=== PATIENT | male | born 1955 | race African-American/Black ===

== ENCOUNTER 2016-05-18 11:52 | Emergency (ER) | payer MEDICAID ==
[~2016-05-18] VITALS: Ht 182.9 cm; Wt 95.3 kg
[~2016-05-18 11:52] MED LIST: CYCLOBENZAPRINE10 MG ORAL; IBUPROFEN600 MG ORAL
[2016-05-18 11:53] VITALS: BP 136/76
[2016-05-18] MEDS ORDERED: TINACTIN30 GM TP (12:10)
[2016-05-18] MEDS ORDERED: BACTRIM DS TAB1 EAC1 ORAL (12:10)
--- NOTE | 2016-05-19 07:14 | Emergency Room Report ---
History of Present Illness General Chief Complaint: Lower Extremity Injury Source: Patient Present Illness HPI Patient had previously checked in however was not found in the waiting room Please note that the patient was in the cafeteria And was initially taken off the patient lists has left without being seen Patient has now returned complains that he has had problems to the nail of his feet bilaterally Skin problems Ongoing for almost the past year Denies any fevers or chills denies any chest pain or shortness of breath denies any other fall or trauma Allergies: Coded Allergies: No Known Allergies (Unverified , 10/26/13) Patient History Past Medical History: see triage record Pertinent Family History: none Reviewed Nursing Documentation: PMH: Agreed, PSxH: Agreed Nursing Documentation-PMH Past Medical History: No History, Except For History Of Psychiatric Problem: Yes - drug addiction Review of Systems All Other Systems: negative except mentioned in HPI Physical Exam Vital Signs Date Time Temp Pulse Resp B/P Pulse Ox O2 Delivery O2 Flow Rate FiO2 05/18/16 11:53 98.2 88 18 136/76 98 Room Air Sp02 EP Interpretation: reviewed, normal General Appearance: well appearing, no apparent distress Head: normocephalic, atraumatic Eyes: bilateral eye EOMI, bilateral eye PERRL ENT: hearing grossly normal, normal pharynx, TMs + canals normal, uvula midline Neck: supple Gastrointestinal: soft Musculoskeletal: normal inspection Neurologic: alert, oriented x3 Skin: other - Patient has fungal infection of bilateral feet including the toenails, there is mild erythema to the dorsal aspect of the right foot concerning for possible early cellulitis Lymphatic: no adenopathy Medical Decision Making Diagnostic Impression: Primary Impression: fungal infection ER Course Patient was provided specialty consultation for podiatry if initially placed on ointment for the fungal infection and antibiotic for possible cellulitis This infection however will likely require oral antifungal medication which is deferred to specialty followup Last Vital Signs Date Time Temp Pulse Resp B/P Pulse Ox O2 Delivery O2 Flow Rate FiO2 05/18/16 12:16 98.2 18 136/76 98 Room Air 05/18/16 11:53 88 Status: unchanged Disposition: HOME, SELF-CARE Condition: Stable Scripts Trimethoprim/Sulfamethoxazole 160/800* (BACTRIM DS TABLET*) 1 Each Tablet 1 TAB ORAL Q12H, #14 TAB 0 Refills Prov: OMARI LEA D.O. 05/18/16 Tolnaftate (TINACTIN) 30 Gm Cream..g. 30 GM TP BID for 10 Days, GM Prov: OMARI LEA D.O. 05/18/16 Referrals: NON PHYSICIAN (PCP) KAYLENE EDWARDS Patient Instructions: Athlete's Foot, [id number] Additional Instructions: Patient is provided with the discharge instructions notified to follow up with primary doctor in the next 2-3 days otherwise return to the er with any worsening symptoms. Please note that this report is being documented using [employer] technology. This can lead to erroneous entry secondary to incorrect interpretation by the dictating instrument. OMARI LEA D.O. May 19, 2016 07:14
== END 2016-05-18 12:30 | disposition home or self-care (01) ==
LOC: EMR 12:23
DX: B35.3 Tinea pedis (principal); B35.1 Tinea unguium
CPT/HCPCS: 99284

== ENCOUNTER 2017-02-16 16:56 | Emergency (ER) | payer MEDICAID ==
[~2017-02-16 16:56] MED LIST changes: +BACTRIM DS TAB1 EAC1 ORAL; +TINACTIN30 GM TP
--- NOTE | 2017-02-18 07:49 | Emergency Room Report ---
History of Present Illness General Chief Complaint: To Be Triaged Present Illness Allergies: Coded Allergies: No Known Allergies (Unverified , 10/26/13) Medical Decision Making Diagnostic Impression: Primary Impression: LWBS Disposition: LEFT W/OUT BEING SEEN Condition: Unknown Referrals: NON PHYSICIAN (PCP) OMARI LEA D.O. Feb 18, 2017 07:49
== END 2017-02-16 18:22 | disposition left against medical advice (07) ==
LOC: EMR 17:55
DX: Z53.21 Procedure and treatment not carried out due to patient leaving prior to being seen by health care provider (principal)

== ENCOUNTER 2017-04-11 23:43 | Emergency (ER) | payer MEDICAID ==
[~2017-04-11] VITALS: Ht 182.9 cm; Wt 90.7 kg
[2017-04-12] MEDS ORDERED: CLINDAMYCIN HC300 MG ORAL (00:13)
[2017-04-12 00:28] VITALS: BP 146/79
--- NOTE | 2017-04-12 00:36 | Emergency Room Report ---
History of Present Illness General Chief Complaint: Lower Extremity Injury Source: Patient Present Illness HPI 7-year-old male, no significant past medical history, presenting with left foot redness for 2 days. Patient states he just noticed it, it hurts. Worse when he walks. Denies any diabetes. No fever no chills. Has been eating and drinking normally. Patient was noted to be eating a whole pizza in the ER Allergies: Coded Allergies: PENICILLINS (Verified Allergy, Unknown, 04/11/17) Patient History Past Medical History: see triage record Past Surgical History: none Pertinent Family History: none Reviewed Nursing Documentation: PMH: Agreed, PSxH: Agreed Review of Systems All Other Systems: negative except mentioned in HPI Physical Exam Vital Signs Date Time Temp Pulse Resp B/P (MAP) Pulse Ox O2 Delivery O2 Flow Rate FiO2 04/11/17 23:46 98.8 102 20 146/79 98 Room Air 98.8 Sp02 EP Interpretation: reviewed, normal General Appearance: normal inspection, well appearing, no apparent distress, alert, GCS 15, non-toxic Head: normocephalic, atraumatic Eyes: bilateral eye normal inspection, bilateral eye PERRL, bilateral eye EOMI ENT: normal ENT inspection, normal pharynx, normal voice, moist mucus membranes Neck: normal inspection, full range of motion, supple Respiratory: normal inspection, lungs clear, normal breath sounds, no respiratory distress, no retraction, no wheezing, speaking full sentences, chest symmetrical Cardiovascular #1: normal inspection, regular rate, rhythm, no edema, normal capillary refill Cardiovascular #2: 2+ radial (R), 2+ radial (L) Gastrointestinal: normal inspection, non tender, soft, non-distended, no guarding Genitourinary: no CVA tenderness Musculoskeletal: back normal, normal range of motion, other - Left foot with 1 + pitting edema, erythema noted in the medial aspect about 4 x 4 centimeters. No ulceration. No tenderness proportion. No crepitus. Full range of motion of left foot Neurologic: normal inspection, alert, oriented x3, responsive, motor strength/ tone normal, sensory intact, normal gait, speech normal Psychiatric: normal inspection, judgement/insight normal, memory normal Skin: warm/dry, well hydrated, normal turgor Medical Decision Making Diagnostic Impression: Primary Impression: Cellulitis of foot ER Course 61-year-old male with redness/swelling to left foot for 2 days DDX: Cellulitis / benign dermatitis No crepitus / pain out of proportion / rapid spreading for concern for nec fasc Plan: Antibiotics anticipate discharge as patient appears well ER course: Remains nontoxic appearing. There has been no rapid spread of redness/swelling. Disposition: Patient is to be discharged to home on PO antibiotics. Strict precautions discussed with patients on when to return to the ED including fevers, chills, rapid spread of rash, persistent rash, extreme pain to extremity, which may indicate severe illness. Patient verbalizes understanding. Patient is instructed to follow up with primary care doctor OR come back to the ED in 48 hours for wound check. Patient agrees with plan. Please note that this Emergency Department Report was dictated using [employer] mobile driver technology software, occasionally this can lead to erroneous entry secondary to interpretation by the dictation equipment. Xray: Left foot 3 view Indication: Pain EP Interpretation: Yes Interpretation: No dislocation, no soft tissue swelling, no fractures Impression: No acute disease Electronically signed by Renan Sow MD Last Vital Signs Date Time Temp Pulse Resp B/P (MAP) Pulse Ox O2 Delivery O2 Flow Rate FiO2 04/12/17 00:28 98.8 20 146/79 98 Room Air 98.8 04/11/17 23:46 102 Disposition: HOME, SELF-CARE Condition: Stable Scripts Clindamycin Hcl (CLINDAMYCIN HCL) 300 Mg Capsule 300 MG ORAL THREE TIMES A DAY, #21 CAP 0 Refills Prov: Renan Sow M.D. 04/12/17 Patient Instructions: Cellulitis, [id number] Additional Instructions: Please follow up with your primary care doctor within 3 days for recheck Please take your prescription medication as directed. Please come back to the emergency room if you are having severe/worsening pain, rapid spread of rash, intractable fever chills, inability to take your medication Renan Sow M.D. Apr 12, 2017 00:35
--- NOTE | 2017-04-12 10:20 | Diagnostic Imaging Report ---
Indication: Reason For Exam: PAIN Technique: 3 views left foot Comparison: none Findings: There is hallux valgus and metatarsus adductus. No acute fractures. No dislocations. The joint spaces are preserved. Fused fourth and fifth distal interphalangeal joints-normal anatomic variant Impression: Negative
== END 2017-04-12 00:25 | disposition home or self-care (01) ==
LOC: EMR 23:56
DX: L03.116 Cellulitis of left lower limb (principal); Z88.0 Allergy status to penicillin
CPT/HCPCS: 99283

== ENCOUNTER 2017-11-12 17:44 | Emergency (ER) | payer MEDICAID ==
[~2017-11-12] VITALS: Ht 182.9 cm; Wt 99.8 kg
[~2017-11-12 17:44] MED LIST changes: +CLINDAMYCIN HC300 MG ORAL
[2017-11-12 18:19] VITALS: BP 154/84
--- NOTE | 2017-11-12 18:58 | Emergency Room Report ---
History of Present Illness General Chief Complaint: Male Urogenital Problems Source: Patient, Medical Record Present Illness HPI 62-year-old male presents emergency department complaining of suspicion for right testicular hernia. He denies pain at this time he reports feeling fullness and a "bulge" on several occasions. Patient states he is not currently having symptoms. Patient denies fevers, chills, swollen tender lymph nodes, lesions or rashes in the groin or penile discharge. Patient denies dysuria, testicular pain, tenderness or swelling. He denies abdominal pain or tenderness. Denies constipation. Allergies: Coded Allergies: PENICILLINS (Verified Allergy, Unknown, 11/12/17) Patient History Past Medical History: see triage record Past Surgical History: none Pertinent Family History: none Reviewed Nursing Documentation: PMH: Agreed; PSxH: Agreed Nursing Documentation-PMH Past Medical History: No History, Except For Review of Systems All Other Systems: negative except mentioned in HPI Physical Exam Vital Signs Date Time Temp Pulse Resp B/P (MAP) Pulse Ox O2 Delivery O2 Flow Rate FiO2 11/12/17 17:49 98.5 91 15 154/84 97 98.4 Sp02 EP Interpretation: reviewed, normal General Appearance: no apparent distress, alert, GCS 15, non-toxic Head: normocephalic, atraumatic ENT: hearing grossly normal, normal voice Neck: full range of motion Respiratory: lungs clear, normal breath sounds, speaking full sentences Cardiovascular #1: regular rate, rhythm Gastrointestinal: normal bowel sounds, non tender, soft, non-distended, no guarding, no hernia Rectal: deferred Genitourinary: normal inspection, penis normal, scrotum normal, other - I do not palpate indirect or direct hernia in the inguinal canal. Cremasteric reflexes are intact no testicular swelling, erythema. Phren sign is not applicable/negative. no LAD Musculoskeletal: back normal, gait/station normal, normal range of motion, non- tender Neurologic: alert, oriented x3, responsive, motor strength/tone normal, sensory intact, normal gait, speech normal, grossly normal Psychiatric: judgement/insight normal Skin: normal color, no rash, warm/dry, well hydrated Lymphatic: no adenopathy Medical Decision Making PA Attestation Dr. Caba is my supervising Physician whom patient management has been discussed with. Diagnostic Impression: Primary Impression: Inguinal hernia of right side without obstruction or gangrene ER Course 62-year-old male presents emergency department complaining of suspicion for right testicular hernia. He denies pain at this time he reports feeling fullness and a "bulge" on several occasions. Patient states he is not currently having symptoms. Patient denies fevers, chills, swollen tender lymph nodes, lesions or rashes in the groin or penile discharge. Patient denies dysuria, testicular pain, tenderness or swelling. He denies abdominal pain or tenderness. Denies constipation. Ddx considered but are not limited to hernia, strangulated or incarcerated hernia, gangrene, testicular torsion, epididymitis, STI just to name a few. Vital signs: are WNL, pt. is afebrile H&PE are most consistent with Normal medical screening exam, JEET Amezcua, was abrasive worker for physical exam. I do not palpate obvious or significant indirect or direct hernia in the inguinal canal. Cremasteric reflexes are intact no testicular swelling, erythema. Phren sign is not applicable/negative. no LAD ORDERS: none required at this time, the diagnosis is clinical- although not currently present, pt. clinically describes symptoms of a hernia, therefore not entirely excluded. ED INTERVENTIONS: None required at this time. -I do not identify an emergent condition at this time. With current presentation , pt. is stable for close outpatient follow up and conservative treatment. D/ w pt. to return promptly to ED with worsening or new symptoms.- Pt. verbalizes understanding and agreement with proposed treatment plan.proposed treatment plan. DISCHARGE: At this time pt. is stable for d/c to home. Will provide printed patient care instructions, and any necessary prescriptions. Care plan and follow up instructions have been discussed with the patient prior to discharge. Last Vital Signs Date Time Temp Pulse Resp B/P (MAP) Pulse Ox O2 Delivery O2 Flow Rate FiO2 11/12/17 18:19 98.4 75 15 154/84 97 98.4 Disposition: HOME, SELF-CARE Condition: Stable Patient Instructions: Hernia, Adult, [id number] Additional Instructions: Take medications as directed. Follow up with a Primary Care Provider in 3-5 days, even if your symptoms have resolved. --Please review list of primary care clinics, if you do not already have a primary care provider Return sooner to ED if new symptoms occur, or current symptoms become worse. - Please note that this Emergency Department Report was dictated using [employer] director technology software, occasionally this can lead to erroneous entry secondary to interpretation by the dictation equipment. Migdalia Mckeon Nov 12, 2017 18:58
[2017-11-12 19:18] VITALS: BP 154/84
== END 2017-11-12 19:03 | disposition home or self-care (01) ==
LOC: EMR 18:26
DX: K40.90 Unilateral inguinal hernia, without obstruction or gangrene, not specified as recurrent (principal); Z88.0 Allergy status to penicillin
CPT/HCPCS: 99282

== ENCOUNTER 2020-03-26 13:44 | Emergency (ER) | payer SELFPAY ==
[~2020-03-26] VITALS: Ht 182.9 cm; Wt 99.8 kg
[~2020-03-26 13:44] MED LIST changes: +IBUPROFEN800 MG ORAL; +LIDODERM700 M1 TOPIC; +TRAMADOL HCL50 MG ORAL
[2020-03-26 13:54] VITALS: BP 150/86
--- NOTE | 2020-03-26 13:59 | NUR ---
ED Nurse Note: Patient from home and walked in due to bilateral toes ingrown x 1 year. States that his feet are getting swollen. AAO x4, ambulates with steady gait. Denies any pain upon ED arrival.
--- NOTE | 2020-03-26 14:51 | Emergency Room Report ---
History of Present Illness General Chief Complaint: Skin Rash/Abscess Present Illness HPI 64 YO male presents to the ED c/o excessively long toe nails bilaterally that are cutting into his skin. Pt. denies erythema, warmth, d/c, fevers or chills. Pt. denies Hx of DM or circulatory issues. He denies having a pulmonary function technologist or PCP. Pt. denies trauma or fall. Denies paresthesias. Denies pain at this time. No other aggravating or relieving factors at this time. Allergies: Coded Allergies: PENICILLINS (Verified Allergy, Unknown, 11/12/17) COVID-19 Screening Contact w/high risk pt: No Experienced COVID-19 symptoms?: No COVID-19 Testing performed CALL TAKER: No Patient History Past Medical History: see triage record Past Surgical History: none Pertinent Family History: none Immunizations: UTD Reviewed Nursing Documentation: PMH: Agreed; PSxH: Agreed Review of Systems All Other Systems: negative except mentioned in HPI Physical Exam Vital Signs Date Time Temp Pulse Resp B/P (MAP) Pulse Ox O2 Delivery O2 Flow Rate FiO2 03/26/20 13:54 97.9 73 16 150/86 96 Room Air Sp02 EP Interpretation: reviewed, normal General Appearance: no apparent distress, alert, GCS 15, non-toxic Head: normocephalic, atraumatic Eyes: bilateral eye normal inspection, bilateral eye PERRL ENT: hearing grossly normal, normal voice Neck: full range of motion Respiratory: lungs clear, normal breath sounds, speaking full sentences Cardiovascular #1: regular rate, rhythm, no edema, normal capillary refill Cardiovascular #2: 2+ dorsalis pedis (R), 2+ dorsalis pedis (L) Musculoskeletal: normal range of motion, gait/station normal, non-tender Neurologic: alert, motor strength/tone normal, oriented x3, sensory intact, responsive, speech normal Psychiatric: judgement/insight normal Skin: no rash, normal color, other - excessively long toe nails bilaterally with with onychomycosis noted as well. No evidence of paronychia, eponychia or infected ingrown nail. Nails are hyperkeratotic and yellow in color. good cap refill. No open wounds. Medical Decision Making PA Attestation Dr. Hughes is my supervising Physician whom patient management has been discussed with. Diagnostic Impression: Primary Impression: Mycotic toenails Additional Impression: Overgrown toenails ER Course 64 YO male presents to the ED c/o excessively long toe nails bilaterally that are cutting into his skin. Pt. denies erythema, warmth, d/c, fevers or chills. Pt. denies Hx of DM or circulatory issues. He denies having a pulmonary function technologist or PCP. Pt. denies trauma or fall. Denies paresthesias. Denies pain at this time. No other aggravating or relieving factors at this time. Ddx considered but are not limited to cellulitis, Necrotizing fasciitis, allergic reaction, burn, dermatitis, fracture, d/L, gout, paronychia, eponychia, ingrown toe nails just to name a few. Vital signs: are WNL, pt. is afebrile H&PE are most consistent with excessively long toe nails bilaterally with with onychomycosis noted as well. No evidence of paronychia, eponychia or infected ingrown nail. Nails are hyperkeratotic and yellow in color. good cap refill. No open wounds. ORDERS: none required at this time, the diagnosis is clinical ED INTERVENTIONS: -Warm Water soak, ----- PT. had to leave and could not wait for interventions to be performed. - Nails to be trimmed by RN. ---- PT. had to leave and could not wait for interventions to be performed. -I do not identify an emergent condition at this time. With current presentation, pt. is stable for close outpatient follow up and conservative treatment. D/w pt. to return promptly to ED with worsening or new symptoms.- Pt. verbalizes' understanding and agreement with proposed treatment plan. DISCHARGE: At this time pt. is stable for d/c to home. Will provide printed patient care instructions, and any necessary prescriptions. Care plan and follow up instructions have been discussed with the patient prior to discharge. Last Vital Signs Date Time Temp Pulse Resp B/P (MAP) Pulse Ox O2 Delivery O2 Flow Rate FiO2 03/26/20 13:54 97.9 73 16 150/86 (107) 96 Room Air Status: improved Disposition: HOME, SELF-CARE Condition: Stable Referrals: NOT CHOSEN IPA/,REFERRING (PCP) [facility] Patient Instructions: Personal Hygiene Additional Instructions: Take medications as directed. Follow up with a Primary Care Provider in 3-5 days FOR PODIATRY REFERRAL even if your symptoms have resolved. --Please review list of primary care clinics, if you do not already have a primary care provider Return sooner to ED if new symptoms occur, or current symptoms become worse. - Please note that this Emergency Department Report was dictated using [employer] pickup/receiving associate technology software, occasionally this can lead to erroneous entry secondary to interpretation by the dictation equipment. Migdalia Mckeon Mar 26, 2020 14:51
[2020-03-26 15:02] VITALS: BP 150/86
--- NOTE | 2020-03-26 15:03 | NUR ---
Patient got upset for waiting too long and walked out of the er
== END 2020-03-26 15:05 | disposition home or self-care (01) ==
LOC: EMR 14:31
DX: B35.1 Tinea unguium (principal); L60.8 Other nail disorders; Z88.0 Allergy status to penicillin
CPT/HCPCS: 99281

== ENCOUNTER 2020-04-11 11:21 | Emergency (ER) | payer SELFPAY ==
[~2020-04-11] VITALS: Ht 182.9 cm; Wt 99.8 kg
--- NOTE | 2020-04-11 12:21 | NUR ---
pt resting with eyes closed in no noted distress. woke pt, he said he is here to get his feet "sterilized".
[2020-04-11 12:22] VITALS: BP 168/91
[2020-04-11] MEDS ORDERED: TINACTIN30 GM TP (12:28)
--- NOTE | 2020-04-11 12:29 | NUR ---
gave pt a basin to wash his feet in with soap and water, towel to dry
--- NOTE | 2020-04-11 12:31 | NUR ---
gave pt basin to wash up in
--- NOTE | 2020-04-11 12:31 | Emergency Room Report ---
History of Present Illness General Chief Complaint: General Complaint Source: Patient Present Illness HPI Disclaimer: Please note that this report is being documented using [employer] technology. This can lead to erroneous entry secondary to incorrect interpretation by the dictating instrument. HPI: 64-year-old male presents requesting medication refill and clipping of his toenails. Patient has longstanding mycotic infection of his toenails and is requesting refill of medication as prescribed last time. Appears this was Tinactin spray. States he has not not been able to see a food bagging machine operator to trim his toenails. Denies skin breakdown, ulcerations, bleeding, purulent drainage. No injury reported. No other symptoms. PMH: Reviewed PSH: Reviewed Allergies: Penicillin Social Hx: Reviewed Allergies: Coded Allergies: PENICILLINS (Verified Allergy, Unknown, 11/12/17) COVID-19 Screening Contact w/high risk pt: No Experienced COVID-19 symptoms?: No COVID-19 Testing performed DISTRICT MEDICAL EXAMINER: No Nursing Documentation-PMH Past Medical History: No History, Except For Hx Diabetes: Yes Review of Systems All Other Systems: negative except mentioned in HPI Physical Exam Vital Signs Date Time Temp Pulse Resp B/P (MAP) Pulse Ox O2 Delivery O2 Flow Rate FiO2 04/11/20 11:39 98.6 90 18 168/91 (116) 96 Room Air General: Awake and alert, no acute distress HEENT: NC/AT. EOMI. Resp: Normal work of breathing Skin: Intact. No abrasions, laceration or rash over the exposed skin. No edema, no cellulitis, no abscess, no purulent drainage. MSK: Normal tone and bulk. Moving all extremities. No obvious deformity. Overgrown toenails thickened appearance consistent with fungal toenail infection Neuro: Awake and alert. Mentating appropriately Medical Decision Making Diagnostic Impression: Primary Impression: Overgrown toenails Additional Impression: Mycotic toenails ER Course 64-year-old male presents for medication refill and toenail trimming. History of mycotic toenails and has not yet followed up with podiatry. Provided with soap and water to clean his feet. No evidence of cellulitis. Will refill his medication and refer again to outpatient podiatry. No indication for emergent labs or imaging at this time. Last Vital Signs Date Time Temp Pulse Resp B/P (MAP) Pulse Ox O2 Delivery O2 Flow Rate FiO2 2/21/21 12:22 98.6 18 168/91 96 Room Air 04/11/20 12:22 90 Disposition: HOME, SELF-CARE Condition: Stable Scripts Tolnaftate (TINACTIN) 30 Gm Cream..g. 30 GM TP BID for 10 Days, GM Prov: Gio Dey MD 04/11/20 Referrals: NON PHYSICIAN (PCP) [facility] Patient Instructions: Athlete's Foot Additional Instructions: Follow-up with clinic for referral to podiatry for toenail maintenance. Take the medication as prescribed. Return to the emergency department new or worsening symptoms. Gio Dey MD Apr 11, 2020 12:31
--- NOTE | 2020-04-11 12:50 | NUR ---
ER DISCHARGE NOTE: Patient is cleared to be discharged per ERMD, pt is aox4, on room air, with stable vital signs. pt was given dc instructions, pt was able to verbalize understanding. pt is able to ambulate with steady gait. pt took all belongings.
== END 2020-04-11 13:10 | disposition home or self-care (01) ==
LOC: EMR 12:11
DX: L60.2 Onychogryphosis (principal); B35.1 Tinea unguium; E11.9 Type 2 diabetes mellitus without complications; Z88.0 Allergy status to penicillin
CPT/HCPCS: 99282